=== PATIENT | male | born 1995 | race Caucasian/White ===

== ENCOUNTER 2019-09-29 01:34 | Emergency (ER) | payer MEDICAID ==
[~2019-09-29] VITALS: Ht 188 cm; Wt 79.4 kg
[2019-09-29 04:08] LABS: Basophils # (auto) 0.1 uL; Basophils % (auto) 0.7 % (0.0-2.0); Eosinophils # (auto) 0.4 uL; Eosinophils % (auto) 2.4 % (0.0-7.0); Hematocrit 41.5 % (41.0-53.0); Lymphocytes # (auto) 3.2 uL; Lymphocytes % (auto) 21.2 % (10.0-50.0); Mean Corpuscular Hgb Conc. 33.8 g/dL (32.0-36.0); Mean Corpuscular Volume 91.7 fL (80.0-100.0); Monocytes # (auto) 1.4 uL; Monocytes % (auto) 9.5 % (0.0-12.0); Neutrophils # (auto) 10.1 uL; Neutrophils % (auto) 66.2 % (37.0-80.0); Platelet Count (auto) 343 10^3/uL (140-450); Red Blood Cells 4.52 10^6/uL (4.5-5.90); Red Cell Distribution Width 13.4 % (11.8-14.3); White Blood Cell 15.2 10^3/uL (4.4-10.8)
[2019-09-29 04:25] LABS: Albumin 3.5 g/dL (3.4-5.0); Calcium 8.3 mg/dL (8.5-10.1); INR 0.98 (0.9-1.15); Partial Thromboplastin Time 28.8 sec (23.64-32.05); Potassium 4.3 mmol/L (3.5-5.1)
[2019-09-29 04:31] LABS: BUN/Creatinine Ratio 17.2; Bilirubin, Total 0.3 mg/dL (0.2-1.0); Total Protein 8.3 g/dL (6.4-8.2)
[2019-09-29] MEDS ORDERED: IOHEXOL 350 MG/ML 100ML IJ ONE ×2 (08:11→09:30)
[2019-09-29 09:15] VITALS: BP 124/81
== END 2019-09-29 11:12 | disposition home or self-care (01) ==
LOC: EDBD 01:34 → EDUNIT# 01:34 → EDBD 01:42 → ER 01:42
DX: R60.0 Localized edema (principal); D72.829 Elevated white blood cell count, unspecified; L03.116 Cellulitis of left lower limb; R74.8 Abnormal levels of other serum enzymes; R79.1 Abnormal coagulation profile; F12.10 Cannabis abuse, uncomplicated; F11.10 Opioid abuse, uncomplicated; F17.210 Nicotine dependence, cigarettes, uncomplicated; M79.672 Pain in left foot
CPT/HCPCS: 36415; 71275; 80053; 85025; 85379; 85610; 85730; 93971; 99284; Q9967

== ENCOUNTER → 2023-02-05 | Emergency (ER) | payer MEDICAID ==
[~2023-02-05] VITALS: Ht 193 cm; Wt 82.6 kg
[~2023-02-05] MED LIST: HYDR25CA PO
[2023-02-05 00:50] VITALS: BP 141/86
== END | disposition left against medical advice (07) ==
LOC: ER 00:27
DX: R42 Dizziness and giddiness (principal); Z53.21 Procedure and treatment not carried out due to patient leaving prior to being seen by health care provider

== ENCOUNTER 2023-03-28 09:10 | Emergency (ER) | payer MEDICAID ==
[~2023-03-28] VITALS: Ht 188 cm; Wt 79.3 kg
[2023-03-28] MEDS ORDERED: cefTRIAXone SOD 1,000 MG VL IM ONE (10:00)
[2023-03-28] MEDS ORDERED: ONDANSETRON ODT 4 MG TAB PO ONE (10:00)
[2023-03-28] MEDS ORDERED: ACETAMINOPHEN 500 MG TAB PO ONE (10:00)
[2023-03-28] MEDS ORDERED: ACET1CAP14 PO (10:02)
[2023-03-28] MEDS ORDERED: BACDST PO (10:02)
[2023-03-28] MEDS ORDERED: ZOFR4T PO (10:02)
[2023-03-28 10:33] VITALS: BP 125/70
== END 2023-03-28 10:39 | disposition home or self-care (01) ==
LOC: ER 09:10
DX: L03.116 Cellulitis of left lower limb (principal); F17.210 Nicotine dependence, cigarettes, uncomplicated; F12.10 Cannabis abuse, uncomplicated; F14.10 Cocaine abuse, uncomplicated
CPT/HCPCS: 96372; 99283; J0696; Q0162

== ENCOUNTER 2023-05-31 09:15 | Emergency (ER) | payer MEDICAID ==
[~2023-05-31] VITALS: Ht 185.4 cm; Wt 84.0 kg
[~2023-05-31 09:15] MED LIST changes: +ACET1CAP14 PO; +BACDST PO; +ZOFR4T PO
[2023-05-31] MEDS ORDERED: LORazepam 2MG/ML-1ML VIAL IV ONE (10:15)
[2023-05-31] MEDS ORDERED: SODIUM CHLORIDE 0.9% 1,000 ML IV ONE (10:15)
[2023-05-31] MEDS ORDERED: NALOXONE HCL 0.4 MG/ML VIAL IV ONE (10:30)
[2023-05-31 10:54] VITALS: BP 116/81; RESP 67; TEMP 98.1
[2023-05-31 10:56] VITALS: O2SAT 100
[2023-05-31 11:07] VITALS: PULSE 55
[2023-05-31 12:48] LABS: Basophils # (auto) 0 10 ^3/uL (0-0.2); Basophils % (auto) 0.1 % (0.0-2.0); Eosinophils # (auto) 0 10 ^3/uL (0-0.8); Hematocrit 37.8 % (41.0-53.0); Hemoglobin 12.2 g/dL (13.5-17.5); Lymphocytes # (auto) 1.4 10 ^3/uL (0.4-5.4); Lymphocytes % (auto) 19.4 % (10.0-50.0); Mean Corpuscular Hemoglobin 28.4 pg (28.0-32.0); Mean Corpuscular Hgb Conc. 32.4 g/dL (32.0-36.0); Mean Corpuscular Volume 87.7 fL (80.0-100.0); Monocytes # (auto) 0.5 10 ^3/uL (0-1.3); Monocytes % (auto) 6.7 % (0.0-12.0); Neutrophils # (auto) 5.4 10 ^3/uL (1.6-8.6); Neutrophils % (auto) 73.8 % (37.0-80.0); Red Blood Cells 4.31 10^6/uL (4.5-5.90); Red Cell Distribution Width 14.6 % (11.8-14.3); White Blood Cell 7.3 10^3/uL (4.4-10.8)
[2023-05-31 13:08] LABS: Calcium 7.9 mg/dL (8.5-10.1); Potassium 3.7 mmol/L (3.5-5.1)
[2023-05-31 13:11] LABS: BUN/Creatinine Ratio 11.2 (10.0-20.0); Bilirubin, Total 0.4 mg/dL (0.2-1.0); Total Protein 6.6 g/dL (6.4-8.2)
== END 2023-05-31 13:34 | disposition home or self-care (01) ==
LOC: ER 09:15 → EDBD 09:15 → ER 13:34
DX: F11.90 Opioid use, unspecified, uncomplicated (principal); R51.9 Headache, unspecified; F15.90 Other stimulant use, unspecified, uncomplicated; F41.9 Anxiety disorder, unspecified; F17.210 Nicotine dependence, cigarettes, uncomplicated; Z79.1 Long term (current) use of non-steroidal anti-inflammatories (NSAID); Z79.899 Other long term (current) drug therapy
CPT/HCPCS: 36415; 80053; 85025; 96361; 96374; 96375; 99284; J2060; J2310; J7030

== ENCOUNTER 2024-03-19 00:32 | Emergency (ER) | payer MEDICAID | END 2024-03-19 01:06 | disposition left against medical advice (07) | LOC: ER 00:32 | DX: R51.9 Headache, unspecified (principal); Z53.21 Procedure and treatment not carried out due to patient leaving prior to being seen by health care provider ==

== ENCOUNTER 2024-04-17 11:58 | Emergency (ER) | payer MEDICAID ==
[~2024-04-17] VITALS: Ht 188 cm; Wt 76.2 kg
[2024-04-17 12:47] LABS: Urine Bacteria None Seen /hpf (None Seen)
[2024-04-17 13:15] LABS: Urine Blood 2+ /uL (Negative); Urine Clarity Turbid (Clear); Urine Color Yellow (Yellow); Urine Hyaline Cast FEW /lpf (0 - 2); Urine Mucus FEW (None Seen); Urine Protein, UAD TRACE (Negative); Urine Specific Gravity 1.024 (1.001-1.035); Urine Urobilinogen Normal (Negative); Urine WBC 4 /hpf (0 - 3); Urine pH 5.5 (5.0-9.0)
[2024-04-17 14:06] LABS: Basophils # (auto) 0 10 ^3/uL (0-0.2); Basophils % (auto) 0.5 % (0.0-2.0); Eosinophils # (auto) 0 10 ^3/uL (0-0.8); Eosinophils % (auto) 0.1 % (0.0-7.0); Hematocrit 39.3 % (41.0-53.0); Hemoglobin 12.9 g/dL (13.5-17.5); Lymphocytes # (auto) 1.8 10 ^3/uL (0.4-5.4); Lymphocytes % (auto) 31.6 % (10.0-50.0); Mean Corpuscular Hemoglobin 29.1 pg (28.0-32.0); Mean Corpuscular Hgb Conc. 32.7 g/dL (32.0-36.0); Mean Corpuscular Volume 89.2 fL (80.0-100.0); Monocytes # (auto) 0.5 10 ^3/uL (0-1.3); Monocytes % (auto) 7.8 % (0.0-12.0); Neutrophils # (auto) 3.5 10 ^3/uL (1.6-8.6); Nucleated Red Blood Cells % 0.1 %; Red Blood Cells 4.41 10^6/uL (4.5-5.90); Red Cell Distribution Width 14.4 % (11.8-14.3); White Blood Cell 5.8 10^3/uL (4.4-10.8)
[2024-04-17 14:47] LABS: Alanine Aminotransferase 56 U/L (7-40); Albumin 4.1 g/dL (3.2-4.8); Alkaline Phosphatase 74 U/L (46-116); Anion Gap 6 (5-15); Aspartate Aminotransferase 37 U/L (13-40); BUN/Creatinine Ratio 14.5 (10.0-20.0); Blood Urea Nitrogen 11 mg/dL (9-23); Calcium 9.3 mg/dL (8.7-10.4); Carbon Dioxide 26 mmol/L (20-30); Chloride 107 mmol/L (98-107); Glucose 91 mg/dL (74-106); Potassium 4.2 mmol/L (3.5-5.1); Sodium 139 mmol/L (136-145)
[2024-04-17 14:48] LABS: Bilirubin, Total 0.4 mg/dL (0.2-1.0); Total Protein 7.3 g/dL (5.7-8.2)
[2024-04-17 17:44] VITALS: BP 106/59; PULSE 64; RESP 16; TEMP 97.7; O2SAT 100
== END 2024-04-17 19:35 | disposition home or self-care (01) ==
LOC: ER 11:58
DX: Z04.6 Encounter for general psychiatric examination, requested by authority (principal); F17.210 Nicotine dependence, cigarettes, uncomplicated; F12.10 Cannabis abuse, uncomplicated; F15.10 Other stimulant abuse, uncomplicated; F14.10 Cocaine abuse, uncomplicated; F41.9 Anxiety disorder, unspecified
CPT/HCPCS: 36415; 71045; 80053; 81001; 85025; 93005

== ENCOUNTER 2024-06-17 22:11 | Emergency (ER) | payer OTHER ==
[~2024-06-17] VITALS: Ht 185.4 cm; Wt 77.1 kg
[2024-06-17 22:55] VITALS: TEMP 97.7
[2024-06-17 23:00] VITALS: PULSE 66; RESP 12; O2SAT 96
[2024-06-17 23:02] LABS: Basophils # (auto) 0 10 ^3/uL (0-0.2); Basophils % (auto) 0.8 % (0.0-2.0); Eosinophils # (auto) 0 10 ^3/uL (0-0.8); Hematocrit 39.9 % (41.0-53.0); Hemoglobin 13.3 g/dL (13.5-17.5); Lymphocytes # (auto) 1.7 10 ^3/uL (0.4-5.4); Lymphocytes % (auto) 40.2 % (10.0-50.0); Mean Corpuscular Hemoglobin 29.4 pg (28.0-32.0); Mean Corpuscular Hgb Conc. 33.3 g/dL (32.0-36.0); Mean Corpuscular Volume 88.4 fL (80.0-100.0); Monocytes # (auto) 0.4 10 ^3/uL (0-1.3); Monocytes % (auto) 9.2 % (0.0-12.0); Neutrophils # (auto) 2.1 10 ^3/uL (1.6-8.6); Neutrophils % (auto) 49.8 % (37.0-80.0); Nucleated Red Blood Cells % 0.2 %; Platelet Count (auto) 208 10^3/uL (140-450); Red Blood Cells 4.52 10^6/uL (4.5-5.90); Red Cell Distribution Width 13.3 % (11.8-14.3); White Blood Cell 4.3 10^3/uL (4.4-10.8)
[2024-06-17 23:17] LABS: Alanine Aminotransferase 52 U/L (7-40); Albumin 4.1 g/dL (3.2-4.8); Alkaline Phosphatase 72 U/L (46-116); Anion Gap 5 (5-15); Aspartate Aminotransferase 41 U/L (13-40); BUN/Creatinine Ratio 18.3 (10.0-20.0); Bilirubin, Total 0.6 mg/dL (0.2-1.0); Blood Alcohol < 3.0 mg/dL (<10); Blood Urea Nitrogen 17 mg/dL (9-23); Calcium 9.3 mg/dL (8.7-10.4); Carbon Dioxide 26 mmol/L (20-30); Chloride 108 mmol/L (98-107); Glucose 80 mg/dL (74-106); Potassium 3.5 mmol/L (3.5-5.1); Sodium 139 mmol/L (136-145)
[2024-06-17] MEDS: NALOXONE HCL 0.4 MG/ML VIAL IV ONE (23:29)
[2024-06-17] MEDS: SODIUM CHLORIDE 0.9% 1,000 ML IV ONE (23:29)
[2024-06-18 02:00] VITALS: BP 115/65; PULSE 76; RESP 15; O2SAT 96
[2024-06-18] MEDS: SODIUM CHLORIDE 0.9% 1,000 ML IV ONE (02:06)
[2024-06-18] MEDS: NALOXONE HCL 1MG/ML 2ML SYRINGE IV ONE (02:06)
[2024-06-18 02:28] LABS: Urine Bacteria FEW /hpf (None Seen); Urine Blood Negative /uL (Negative); Urine Clarity Clear (Clear); Urine Color Yellow (Yellow); Urine Mucus FEW (None Seen); Urine Protein, UAD TRACE (Negative); Urine Specific Gravity 1.034 (1.001-1.035); Urine Sperm PRESENT /hpf (None Seen); Urine Urobilinogen 4 mg/dL (Negative); Urine WBC 1 /hpf (0 - 3)
[2024-06-18 02:30] LABS: Amphetamine Screen, Urine Pos (NEGATIVE); Barbiturate Scree,Urine Neg (NEGATIVE); Benzodiazephine Screen, Urine Neg (NEGATIVE); Cannabinoid Screen, Urine Neg (NEGATIVE); Cocaine Screen, Urine Neg (NEGATIVE); Opiate Scree,Urine Neg (NEGATIVE); Phencyclidine Screen, Urine Neg (NEGATIVE)
== END 2024-06-18 02:42 ==
LOC: ER 22:11 → EDBD 22:11 → ER 06-18 02:42
DX: T40.603A Poisoning by unspecified narcotics, assault, initial encounter (principal); T42.4X3A Poisoning by benzodiazepines, assault, initial encounter; F41.9 Anxiety disorder, unspecified; F17.210 Nicotine dependence, cigarettes, uncomplicated; Z79.899 Other long term (current) drug therapy; Y92.89 Other specified places as the place of occurrence of the external cause
CPT/HCPCS: 36415; 80053; 80307; 80320; 81001; 85025; 93005; 96361; 96374; 96376; 99285; J2310; J7030

== ENCOUNTER 2025-09-01 22:04 | Emergency (ER) | payer OTHER ==
[~2025-09-01] VITALS: Ht 188 cm; Wt 75.0 kg
[2025-09-01 22:07] VITALS: BP 114/81; PULSE 80; RESP 16; TEMP 97; O2SAT 99
== END 2025-09-01 22:12 | disposition left against medical advice (07) ==
LOC: ER 22:04
DX: S61.212A Laceration without foreign body of right middle finger without damage to nail, initial encounter (principal); Z53.21 Procedure and treatment not carried out due to patient leaving prior to being seen by health care provider; W45.8XXA Other foreign body or object entering through skin, initial encounter; Y93.89 Activity, other specified; Y92.89 Other specified places as the place of occurrence of the external cause; Y99.8 Other external cause status